=== PATIENT | male | born 1975 | race Caucasian/White ===

== ENCOUNTER 2017-10-21 08:22 | Inpatient (IN) | payer OTHER ==
[2017-10-05 11:07] VITALS: BMI 31.0
--- NOTE | 2017-10-05 11:28 | PAT Medication Instructions ---
Service Date Oct 05, 2017. Current Home Medication List Naproxen (Aleve), 440-660 MG PO DAILY PRN for Pain Omeprazole (Prilosec), 20 MG PO QDD Probiotic Product (Probiotic), 1 CAP PO QDD Medication Instructions For Your Scheduled Surgery - Check with surgeon for instructions: Naproxen (Aleve), 440-660 MG PO DAILY PRN for Pain - Take the following medications as scheduled the night before surgery: Omeprazole (Prilosec), 20 MG PO QDD Probiotic Product (Probiotic), 1 CAP PO QDD If you have any questions please call us at [phone] or [phone] or [phone]
--- NOTE | 2017-10-05 12:12 | DIAGNOSTIC IMAGING REPORT ---
CHEST 2 VIEWS ROUTINE HISTORY: Preop. COMPARISON: Chest CT 04/26/2008. FINDINGS: The lungs are clear. The heart is normal in size. No pleural effusions. No pneumothorax. IMPRESSION: No acute process. Electronically signed by: Mariano Nelson M.D. 10/05/2017 12:10 PM Dictated Date/Time: 10/05/2017 12:09 PM
[2017-10-05 13:02] LABS: BASO % 1.3 %; BASO ABS # 0.07 K/uL (0-0.2); EOS % 3.2 %; EOS ABS # 0.17 K/uL (0-0.5); HEMATOCRIT 43.5 % (42-52); HEMOGLOBIN 15.1 g/dL (14.0-18.0); IG# 0.02 K/uL (0.00-0.02); LYMPH ABS # 1.49 K/uL (1.2-3.4); MEAN CELL VOLUME 92.8 fL (80-100); MEAN CORPUSCULAR HEMOGLOBIN 32.2 pg (25-34); MEAN CORPUSCULAR HGB CONC 34.7 g/dl (32-36); MEAN PLATELET VOLUME 11.3 fL (7.4-10.4); MONO % 7.9 %; MONO ABS # 0.42 K/uL (0.11-0.59); NEUT % 59.2 %; NEUT ABS # 3.15 K/uL (1.4-6.5); PLATELET COUNT 199 K/uL (130-400); RED CELL DISTRIBUTION WIDTH CV 12.6 % (11.5-14.5); RED CELL DISTRIBUTION WIDTH SD 42.6 fL (36.4-46.3); WHITE BLOOD COUNT 5.32 K/uL (4.8-10.8)
[2017-10-05 13:33] LABS: CALCIUM 9.2 mg/dl (8.5-10.1); CREATININE 0.73 mg/dl (0.60-1.40); POTASSIUM 4.2 mmol/L (3.5-5.1)
[~2017-10-21] VITALS: Ht 175.3 cm; Wt 95.2 kg
[2017-10-21] VITALS (7 sets, daily range): BP systolic 99–132; BP diastolic 62–82; PULSE 68–89; TEMP 36.5–37.3; O2SAT 92–100; Ht 175.3 cm; Wt 95.2 kg
[~2017-10-21 08:22] MED LIST: ATROPINE SULFATE 0.1 MG/ML 5ML SYR IV PRN; CEFAZOLIN 2000MG IV PUSH 15 ML IV SCH; EpHEDrine SULFATE INJ 50 MG/ML AMP IV PRN; FENTANYL CITRATE INJ 50 MCG/1 ML 2 ML VIAL IV PRN; HYDROmorphone INJ 1 MG/ML SYR IV PRN; LACTATED RINGER'S 1000ML 1,000 ML IV SCH; MISCCAP80 PO; NAPR1TAB9 PO; ONDANSETRON INJ 2 MG/ML 2 ML VIAL IV PRN; PHENYLEPHRINE 100MCG/ML 5ML SYR IV PRN; PRLSR20 PO; PROMETHAZINE HCL INJ 12.5 MG in SODIUM CHLORIDE 0.9% 50ML 50 ML IV PRN
[2017-10-21] MEDS ORDERED: FENTANYL CITRATE INJ 50 MCG/1 ML 2 ML VIAL ONE ×5 (08:49→12:12)
[2017-10-21] MEDS ORDERED: MIDAZOLAM HCL 1 MG/ML 2ML VIAL ONE (08:49)
--- NOTE | 2017-10-21 09:02 | History & Physical Bridge Note ---
H&P Re-Evaluation Bridge Note: I have examined the patient, reviewed the History & Physical and in the interval since the performance of the History & Physical I have noted the following changes of clinical significance: No changes noted
--- NOTE | 2017-10-21 09:03 | History and Physical ---
History & Physical Date Oct 21, 2017. Chief Complaint Back and leg pain History of Present Illness The patient is a 42 year old male with complaints of back and leg pain Additional History Hepatic Disease: No Endocrine Disorder: No Kidney Disease: No Hypertension: No Heart Disease: No Bleeding Tendencies: No Infectious Diseases: No Allergies Coded Allergies: No Known Allergies (Verified , 10/21/17) Home Medications Scheduled Omeprazole (Prilosec), 20 MG PO QDD Probiotic Product (Probiotic), 1 CAP PO QDD Scheduled PRN Naproxen (Aleve), 440-660 MG PO DAILY PRN for Pain Physical Examination Skin: warm/dry, no rash Eyes: normal inspection, EOMI, sclerae normal ENT: normal ENT inspection, pharynx normal Head: normocephalic, atraumatic Neck: supple, no adenopathy, trachea midline Respiratory/Chest: lungs clear, normal breath sounds, no respiratory distress Cardiovascular: regular rate, rhythm, no edema, no murmur Abdomen / GI: normal bowel sounds, non tender Back: normal inspection Extremities: normal inspection, normal range of motion Neurologic/Psych: no motor/sensory deficits, alert, normal reflexes, oriented x 3 Diagnosis Lumbar spinal stenosis Plan of Treatment L4 to S1 decompression and fusion
[2017-10-21] MEDS ORDERED: BACITRACIN 50000 UNIT VIAL ONE (09:44)
[2017-10-21] MEDS ORDERED: BUPIVACAINE/EPINEPHRINE 0.5% MPF 1:200,000 30 ML VIAL ONE (09:44)
[2017-10-21] MEDS ORDERED: HYDROmorphone INJ 2 MG/ML SYR/VIAL ONE ×2 (09:53→11:42)
[2017-10-21] MEDS ORDERED: GLYCOPYRROLATE INJ 0.2 MG/ML VIAL ONE (11:43)
[2017-10-21] MEDS ORDERED: FLOSEAL HEMOSTATIC MATRIX 10ML TOP ONE (11:43)
[2017-10-21] MEDS ORDERED: METOPROLOL TARTRATE 1 MG/ML VIAL ONE (11:43)
[2017-10-21] MEDS ORDERED: KETOROLAC TROMETHAMINE 30 MG/ML VIAL ONE (11:43)
[2017-10-21] MEDS ORDERED: LIDOCAINE HCL 2% 2 ML VIAL (20MG/ML) ONE (11:43)
[2017-10-21] MEDS ORDERED: NEOSTIGMINE METHYLSULFATE 1 MG/ML 10ML VIAL ONE (11:43)
[2017-10-21] MEDS ORDERED: PROPOFOL IV EMULSION 10 MG/ML 20 ML VIAL IV ONE (11:43)
[2017-10-21] MEDS ORDERED: ONDANSETRON INJ 2 MG/ML 2 ML VIAL ONE (11:43)
[2017-10-21] MEDS ORDERED: ESMOLOL HCL 10 MG/ML 10 ML VIAL ONE (11:43)
[2017-10-21] MEDS ORDERED: ROCURONIUM BROMIDE 10 MG/ML 5 ML VIAL IV ONE (11:43)
[2017-10-21] MEDS ORDERED: DEXAMETHASONE SOD INJ 4 MG/ML VIAL ONE (11:43)
--- NOTE | 2017-10-21 11:47 | [facility] Operative Report ---
Operative Report Operative Date Oct 21, 2017. Pre-Operative Diagnosis Lumbar Spinal Stenosis Post-Operative Diagnosis same as pre-operative diagnosis Procedure(s) Performed #1 lumbar decompression medial facetectomies foraminotomies L4 5 L5-S1. #2 posterior spinal fusion L4 5 L5-S1. #3 placed posterior segmental instrumentation L4 5 L5-S1. #4 interbody fusion L4 5 L5-S1. #5 placement peek cage 15 x 26 at L4 5 and 12 x 26 L5-S1. #6 placement of locally harvested morcellized autograft in the posterior lateral gutters. #7 placement infuse collagen sponge, mass graft and locally harvested morcellized autograft in the posterior lateral gutters as well as posteriorly up in the interbody spaces. Surgeon Dr. Ed Mclean Supervisor Furnace Process Surgeon(s) Carissa Guzman PA-C Estimated Blood Loss 450mL Findings Severe spinal stenosis with herniated nucleus pulposus Specimens None, Per Surgeon Anesthesia Type General Description of Procedure Patient was met with preoperatively case discussed all questions addressed. After informed consent obtained patient was taken to the operative suite underwent intubation placed in the prone position on the Donnie table on top of the Trent frame. All bony prominences were well-padded the eyes inspected to ensure no external pressure placed upon them. This point the lumbar spine was prepped and draped in the normal sterile fashion. Sharp dissection with the assistance of Bovie cautery was performed down to and exposing the lamina transverse processes of L4-L5 and the sacroiliac bilaterally. From a caudal to cephalad fashion a complete laminectomy of L5 and L4 was performed addressing severe lateral recess and foraminal stenosis. At this complete pedicle screws were placed in L4 L5 S1 levels bilaterally with the assistance of fluoroscopy and the properly sized erma placed. Through a trans-foraminal approach on the right oblique discectomy of L5-S1 was performed endplates curetted to subcortical bleeding bone and a 12 x 26 mm peek cage filled with osteal bone graft Position. I Then Proceeded to L4 5. Again through a Transforaminal Approach on the Right a Complete Discectomy Was Performed and Plate Could to Subcortical Bleeding Bone and a 10 x 26 Mm Peek Cage Filled with Osteal Bone Graft Tapped in Position. Rods Were Then Compressed Locked into Final Position Bilaterally. The Transverse Processes of L4 and L5 This Acrylic Bur to Subcortical Bone. Infuse Collagen Sponge Mass Graft Locally Harvested Morcellized Autograft Was Placed Posterior Gutters. The Femur REJI Drain Inserted. The Incision Was Then Closed with 1 Vicryl in the Fascia 2-0 Vicryl Subcutaneous and 4-0 Monocryl for Final Skin Closure Steri-Strips Dressings Placed. Patient Was Taken PACU Stable Condition. Please Note Rolan Guzman Was Present at the Entire Procedure Involved in Patient Positioning Complex Portions of the Surgery and Final Skin Closure. I attest to the content of the Intraoperative Record and any orders documented therein. Any exceptions are noted below.
[2017-10-21] MEDS ORDERED: SODIUM CHLORIDE 0.9% 1000ML 1,000 ML IV SCH (11:48)
--- NOTE | 2017-10-21 11:52 | DIAGNOSTIC IMAGING REPORT ---
Intraoperative lumbar spine 2 views CLINICAL HISTORY: L4-S1 DECOMPRESSION/FUSION COMPARISON STUDY: No previous studies for comparison. FINDINGS: 2 intraoperative fluoroscopic spot views are provided for interpretation. 26 seconds of fluoroscopic time was utilized. There are postsurgical changes of discectomies and interbody fusions at the L4-5 and L5-S1 levels. There is posterior pedicle screw fixation at the L4, L5, and S1 levels. There is a vertebral body cage at the L3 level. There is a partially visualized lateral metallic plate and screws. IMPRESSION: Intraoperative findings of an L4-S1 spinal decompression and fusion. Electronically signed by: Ketan Huerta M.D. 10/21/2017 11:51 AM Dictated Date/Time: 10/21/2017 11:48 AM
[2017-10-21] MEDS ORDERED: ALUMINUM/MAGNESIUM SUSP 30 ML UDC PO PRN (12:00)
[2017-10-21] MEDS ORDERED: LORAZEPAM INJ 0.5 MG in SYRINGE 0.75 ML IV PRN (12:00)
[2017-10-21] MEDS ORDERED: PROMETHAZINE HCL INJ 12.5 MG in SODIUM CHLORIDE 0.9% 50ML 50 ML IV PRN (12:00)
[2017-10-21] MEDS ORDERED: MAGNESIUM HYDROXIDE SUSP 30 ML UDC PO PRN (12:00)
[2017-10-21] MEDS ORDERED: FAMOTIDINE 20 MG TAB PO PRN (12:00)
[2017-10-21] MEDS ORDERED: BISACODYL 10 MG SUPP PR PRN (12:00)
[2017-10-21] MEDS ORDERED: DO NOT ADMINISTER PNEUMOCOCCAL VACCINE PRN (12:00)
[2017-10-21] MEDS ORDERED: ACETAMINOPHEN IV 100 ML IV PRN (12:00)
[2017-10-21] MEDS ORDERED: hydrOXYzine HCL 25 MG TAB PO PRN (12:00)
[2017-10-21] MEDS ORDERED: METOCLOPRAMIDE HCL INJ 5 MG/ML 2 ML VIAL IV PRN (12:00)
[2017-10-21] MEDS ORDERED: ACETAMINOPHEN 500 MG TAB PO PRN (12:00)
[2017-10-21] MEDS ORDERED: DO NOT ADMINISTER FLU VACCINE PRN (12:00)
[2017-10-21] MEDS ORDERED: SOD PHOSPHATE/SOD BIPHOSPHATE ENEMA 132 ML BTL PR PRN (12:00)
[2017-10-21] MEDS ORDERED: NALOXONE HCL 0.4 MG/1 ML VIAL/CARP IV PRN ×2 (12:00)
[2017-10-21] MEDS ORDERED: ONDANSETRON INJ 2 MG/ML 2 ML VIAL IV PRN (12:00)
[2017-10-21] MEDS ORDERED: LORAZEPAM 0.5 MG TAB PO PRN (12:00)
[2017-10-21] MEDS ORDERED: HYDROmorphone INJ 1 MG/ML SYR ONE (12:13)
--- NOTE | 2017-10-21 12:51 | Anesthesiology Progress Note ---
Anesthesia Post Op Note Date & Time Oct 21, 2017 at 12:50 Vital Signs Pain Intensity: 6 Vital Signs Past 12 Hours Date Time Temp Pulse Resp B/P (MAP) Pulse Ox O2 Delivery O2 Flow Rate FiO2 10/21/17 12:49 36.3 10/21/17 12:47 71 16 10/21/17 12:47 73 16 98 10/21/17 12:46 117/84 10/21/17 12:42 74 16 94 10/21/17 12:42 73 16 10/21/17 12:41 121/78 10/21/17 12:37 63 16 10/21/17 12:37 63 16 96 10/21/17 12:36 63 16 97 10/21/17 12:36 63 16 10/21/17 12:35 123/84 10/21/17 12:31 67 12 10/21/17 12:31 68 12 134/85 97 10/21/17 12:29 139/83 10/21/17 12:26 70 12 10/21/17 12:26 68 12 100 10/21/17 12:21 71 14 10/21/17 12:21 73 14 98 10/21/17 12:20 125/93 10/21/17 12:19 69 15 10/21/17 12:19 67 15 99 10/21/17 12:16 136/82 10/21/17 12:14 70 15 10/21/17 12:14 71 15 100 10/21/17 12:10 136/84 10/21/17 12:09 67 16 10/21/17 12:09 66 16 99 10/21/17 12:05 123/79 10/21/17 12:04 82 15 10/21/17 12:04 82 15 128/87 94 10/21/17 12:04 36.8 16 128/87 96 Oxymask 10 10/21/17 08:44 36.5 89 20 117/82 95 Room Air Notes Mental Status: alert / awake / arousable, participated in evaluation Pt Amnestic to Procedure: Yes Nausea / Vomiting: adequately controlled Pain: adequately controlled Airway Patency, RR, SpO2: stable & adequate BP & HR: stable & adequate Hydration State: stable & adequate Anesthetic Complications: no major complications apparent Awake, doing well, VSS, pain controlled.
[2017-10-21] MEDS: HYDROmorphone HCL 0.5MG/ML 50 ML CASSETTE IV PRN ×3 (13:06→22:49)
[2017-10-21] MEDS: SODIUM CHLORIDE 0.9% 1000ML 1,000 ML IV SCH ×2 (13:10→20:30)
[2017-10-21] MEDS ORDERED: VOLUVEN IN NSS ONE (14:23)
[2017-10-21] MEDS: CEFAZOLIN IV 2,000 MG in SYRINGE 0 ML IV SCH (18:11)
[2017-10-21] MEDS: PANTOprazole SOD 40 MG TAB PO SCH (18:11)
[2017-10-21] MEDS: DOCUSATE SODIUM/SENNA 50/8.6MG TAB PO SCH (21:18)
[2017-10-22] MEDS: SODIUM CHLORIDE 0.9% 1000ML 1,000 ML IV SCH (01:44)
[2017-10-22] MEDS: CEFAZOLIN IV 2,000 MG in SYRINGE 0 ML IV SCH (01:44)
[2017-10-22 03:45] VITALS: BP 115/87; PULSE 98; TEMP 37.2; O2SAT 93
[2017-10-22] MEDS ORDERED: DC PCA SCH (06:00)
[2017-10-22] MEDS ORDERED: NURSING VERBAL MED ORDER ONE (06:15)
[2017-10-22 06:42] LABS: BASO % 0.2 %; BASO ABS # 0.02 K/uL (0-0.2); EOS % 0.3 %; EOS ABS # 0.03 K/uL (0-0.5); HEMATOCRIT 33.5 % (42-52); HEMOGLOBIN 11.1 g/dL (14.0-18.0); IG# 0.02 K/uL (0.00-0.02); LYMPH % 8.6 %; LYMPH ABS # 1.01 K/uL (1.2-3.4); MEAN CELL VOLUME 92.5 fL (80-100); MEAN CORPUSCULAR HEMOGLOBIN 30.7 pg (25-34); MEAN CORPUSCULAR HGB CONC 33.1 g/dl (32-36); MONO % 10.9 %; MONO ABS # 1.28 K/uL (0.11-0.59); NEUT % 79.8 %; NEUT ABS # 9.39 K/uL (1.4-6.5); PLATELET COUNT 142 K/uL (130-400); RED CELL DISTRIBUTION WIDTH CV 12.6 % (11.5-14.5); WHITE BLOOD COUNT 11.75 K/uL (4.8-10.8)
[2017-10-22 07:18] LABS: CALCIUM 7.5 mg/dl (8.5-10.1); CREATININE 0.87 mg/dl (0.60-1.40); POTASSIUM 3.6 mmol/L (3.5-5.1)
[2017-10-22 07:27] VITALS: BP 98/57; TEMP 37; O2SAT 85
[2017-10-22 07:34] VITALS: O2SAT 93
[2017-10-22] MEDS: HYDROmorphone INJ 0.5 MG/0.5 ML SYR IV PRN ×2 (07:44→12:19)
--- NOTE | 2017-10-22 08:15 | Orthopedic Progress Note ---
Orthopedic Progress Note Date of Service Oct 22, 2017. Subjective Post OP Day: 1 Reports: feeling well Additional Notes: Patient's postoperative day 1 lumbar decompression with instrument fusion L4 through S1. Only complaint is headache. This is not positional. Back pain is controlled. No radicular leg pain. REJI drain output left shift was 80 mL. H&H is 11.1 and 33.5 respectively. Objective calves soft nontender, N/V intact, dressing C/D/I, incision C/D/I, A&O x3 Patient lying on her side. Larks reservist intact. Lumbar dressing clean dry and intact. Date Time Temp Pulse Resp B/P (MAP) Pulse Ox O2 Delivery O2 Flow Rate FiO2 10/22/17 07:34 18 93 Nasal Cannula 2.0 10/22/17 07:27 37.0 18 98/57 (71) 85 Room Air 10/22/17 03:45 37.2 98 16 115/87 (96) 93 Room Air 10/21/17 23:19 Room Air 10/21/17 22:50 36.7 88 16 99/68 (78) 92 Room Air 10/21/17 20:19 37.3 83 17 117/75 (89) 98 Nasal Cannula 3.0 10/21/17 15:25 Nasal Cannula 4.0 10/21/17 15:10 36.5 69 17 110/71 (84) 99 Nasal Cannula 4.0 10/21/17 14:10 77 16 107/62 (77) 100 Nasal Cannula 4.0 10/21/17 13:40 36.5 71 16 115/69 (84) 99 Nasal Cannula 4.0 10/21/17 13:10 36.5 68 16 132/78 (96) 100 Nasal Cannula 4.0 10/21/17 13:10 100 Nasal Cannula 4.0 10/21/17 13:10 Nasal Cannula 4.0 10/21/17 12:55 112/78 10/21/17 12:53 64 15 98 10/21/17 12:53 64 15 10/21/17 12:52 115/93 10/21/17 12:49 36.3 10/21/17 12:48 69 17 99 10/21/17 12:48 70 17 10/21/17 12:47 71 16 10/21/17 12:47 73 16 98 10/21/17 12:46 117/84 10/21/17 12:42 74 16 94 10/21/17 12:42 73 16 10/21/17 12:41 121/78 10/21/17 12:37 63 16 10/21/17 12:37 63 16 96 10/21/17 12:36 63 16 97 10/21/17 12:36 63 16 10/21/17 12:35 123/84 10/21/17 12:31 67 12 10/21/17 12:31 68 12 134/85 97 10/21/17 12:29 139/83 10/21/17 12:26 70 12 10/21/17 12:26 68 12 100 10/21/17 12:21 71 14 10/21/17 12:21 73 14 98 10/21/17 12:20 125/93 10/21/17 12:19 69 15 10/21/17 12:19 67 15 99 10/21/17 12:16 136/82 10/21/17 12:14 70 15 10/21/17 12:14 71 15 100 10/21/17 12:10 136/84 10/21/17 12:09 67 16 10/21/17 12:09 66 16 99 10/21/17 12:05 123/79 10/21/17 12:04 82 15 10/21/17 12:04 82 15 128/87 94 10/21/17 12:04 36.8 16 128/87 96 Oxymask 10 10/21/17 08:44 36.5 89 20 117/82 95 Room Air Laboratory Results 24 Hours: Test 10/22/17 06:23 White Blood Count 11.75 K/uL Red Blood Count 3.62 M/uL Hemoglobin 11.1 g/dL Hematocrit 33.5 % Mean Corpuscular Volume 92.5 fL Mean Corpuscular Hemoglobin 30.7 pg Mean Corpuscular Hemoglobin Concent 33.1 g/dl Platelet Count 142 K/uL Mean Platelet Volume 11.0 fL Neutrophils (%) (Auto) 79.8 % Lymphocytes (%) (Auto) 8.6 % Monocytes (%) (Auto) 10.9 % Eosinophils (%) (Auto) 0.3 % Basophils (%) (Auto) 0.2 % Neutrophils # (Auto) 9.39 K/uL Lymphocytes # (Auto) 1.01 K/uL Monocytes # (Auto) 1.28 K/uL Eosinophils # (Auto) 0.03 K/uL Basophils # (Auto) 0.02 K/uL Assessment & Plan Assessment: Postoperative debridement lumbar decompression for spinal fusion L4 through S1 Plan: He'll have physical therapy today. Maintain REJI drain. DVT prophylaxis isn't from teds and SCDs. Anticipate discharge home with the next 24-48 hours.
[2017-10-22] MEDS: OXYCODONE HCL IR 5 MG TAB (IMMEDIATE RELEASE) PO PRN (10:09)
[2017-10-22 10:41] VITALS: BP 124/73; PULSE 84; TEMP 37; O2SAT 96
[2017-10-22] MEDS ORDERED: KETOROLAC TROMETHAMINE 30 MG/ML VIAL IV PRN (11:15)
[2017-10-22 15:08] VITALS: BP 111/69; PULSE 98; TEMP 37.5; O2SAT 92
[2017-10-22] MEDS: PANTOprazole SOD 40 MG TAB PO SCH (18:09)
[2017-10-22] MEDS: KETOROLAC TROMETHAMINE 30 MG/ML VIAL IV PRN (18:12)
[2017-10-22] MEDS: DOCUSATE SODIUM/SENNA 50/8.6MG TAB PO SCH (21:10)
[2017-10-22 23:00] VITALS: BP 126/68; PULSE 79; TEMP 37; O2SAT 92
[2017-10-23] MEDS: KETOROLAC TROMETHAMINE 30 MG/ML VIAL IV PRN ×3 (04:47→18:37)
[2017-10-23] MEDS: POLYETHYLENE (MIRALAX) 17 GM PACK PO SCH ×2 (05:37→12:00)
[2017-10-23] MEDS ORDERED: RXC5 PO (07:34)
--- NOTE | 2017-10-23 07:35 | Discharge Instructions ---
Discharge Instructions Date of Service Oct 23, 2017. Admission Reason for Admission: Spinal Stenosis Discharge Discharge Diagnosis / Problem: lumbar stenosis Discharge Goals Goal(s): Improve function Activity Recommendations Activity Limitations: per Instructions/Follow-up section . Instructions / Follow-Up Instructions / Follow-Up ACTIVITY RECOMMENDATIONS: SELF CARE INSTRUCTIONS AFTER THORACIC/LUMBAR FUSIONS 1. You may walk to your tolerance. It is good exercise for your legs and back. Expect some back and intermittent leg aches and pains. 2. You may perform "counter-top" level activities (make a sandwich, yung with a project, etc.). 3. No bending or lifting of more than 10 pounds or back twisting of any nature (roll like a log when turning in bed). 4. You may ride in a car for 20-30 minutes at a time. No driving until after your first visit with your doctor. 5. Frequent changes of position and restricting sitting to 30 minutes at a time will help limit the amount of back spasms and stiffness you may experience. 6. You may discontinue the use of ambulatory aids (cane, crutches, etc.) once your strength and confidence allow. 7. You may bilingual teacher the shower and let water strike your incision when you arrive home at least once daily. Do not take a tub bath, sit in a hot tub or go into a swimming pool until after your first recheck in the office. SPECIAL CARE INSTRUCTIONS: VERY IMPORTANT TO READ AND REVIEW A. Your surgical incision has been closed with a cosmetic suture under the skin that will dissolve in about 6 weeks. In 14 days, you can use a pair of clean scissors and cut the suture that is left outside of the skin at the ends of your incision. 1. The small skin tapes can be removed 7 days after surgery if they have not fallen off by that point. 2. You may keep the wound open to air as much as possible to promote healing after post-op day number 5 unless told otherwise by your doctor. 3. If you think the wound looks like it is becoming infected (redness or worsening drainage) and/or you are experiencing fever, chill or worsening back pain and muscle spasms, contact the office so that we may evaluate you as soon as possible. B. Complications are uncommon, but please contact us if you have any signs or symptoms of: 1. wound infection (fever higher than 102.5 degrees F, redness, separation of wound, drainage, or increasing pain from the incision) 2. blood clots in legs (pain, swelling, redness and warmth in legs) 3. urinary tract infection (fever higher than 102.5 degrees F, burning upon urination or increased frequency of urination) 4. nerve problems (inability to walk on your toes or heels, numbness, loss of bowel or bladder control) 5. any other symptoms that concern you C. Please call the office at if you have any concerns or questions about your operation or recovery. D. No smoking! Smoking drastically decreases the chance of a solid fusion. E. Do not take any anti-inflammatory medications (Indocin, Advil, Motrin, Aspirin, Naprosyn, etc.) as these may inhibit the chance of a solid fusion. Tylenol is okay to take for pain. MANAGING PAIN AFTER SPINAL SURGERY 1. Narcotic medication is intended for short-term use and will be provided for surgical pain. Surgical pain usually lasts for a period of 4-6 weeks. Narcotic medication includes Percocet, Vicodin, Darvocet, Tylenol #3 or Lortab. 2. Longer-term pain is more appropriately treated with non-narcotic medication such as Tylenol ES. 3. Muscle spasm is not appropriately treated with narcotics. Muscle relaxers such as Soma, Flexeril or Skelaxin can be used along with Tylenol ES. 4. Remember that we all live with some "aches and pains". This is not unusual or uncommon after an injury or as we get older. a. Back pain is expected and may include muscle spasms for 4 to 6 weeks after surgery. The pain should gradually improve. If the pain worsens for no apparent reason, please contact the office. b. Intermittent leg pain may also be experienced and should not be concerned about unless it worsens for no apparent reason. If so, please contact the office. 5. We will provide appropriate medication within the normal guidelines of their prescribed use. We will also be very cautious and aware of potential abuse and extended duration of patients' medication needs. a. Pain medications are for your comfort and to assist with sleep and rest so that the tissue can heal. They are not provided in order to return to normal activity and should not be used through the day. To do so or worsening pain at night can result from ongoing tissue damage and development of tolerance to the prescribed medicine. 6. Please allow 2-3 days to process refills. Prescriptions will not be mailed but must be picked up at the office. FOLLOW UP VISIT: Keep your scheduled follow-up appointment. Any questions, please call the office at . Current Hospital Diet Patient's current hospital diet: Regular Diet Discharge Diet Recommended Diet: Regular Diet Procedures Procedures Performed: #1 lumbar decompression medial facetectomies foraminotomies L4 5 L5-S1. #2 posterior spinal fusion L4 5 L5-S1. #3 placed posterior segmental instrumentation L4 5 L5-S1. #4 interbody fusion L4 5 L5-S1. #5 placement peek cage 15 x 26 at L4 5 and 12 x 26 L5-S1. #6 placement of locally harvested morcellized autograft in the posterior lateral gutters. #7 placement infuse collagen sponge, mass graft and locally harvested morcellized autograft in the posterior lateral gutters as well as posteriorly up in the interbody spaces. Pending Studies Studies pending at discharge: no Medical Emergencies . Who to Call and When: Medical Emergencies: If at any time you feel your situation is an emergency, please call 911 immediately. . Non-Emergent Contact Non-Emergency issues call your: Primary Care Provider . "Provider Documentation" section prepared by Ed Mclean. . VTE Core Measure Inpt VTE Proph given/why not?: Nolan Calvo, SCD's
[2017-10-23 07:55] VITALS: BP 128/64; PULSE 92; TEMP 37; O2SAT 94
[2017-10-23 08:18] VITALS: O2SAT 94
[2017-10-23 09:35] VITALS: BP 141/81
[2017-10-23 09:42] VITALS: BP 128/64; PULSE 92; TEMP 37; O2SAT 94
[2017-10-23] MEDS: OXYCODONE HCL IR 5 MG TAB (IMMEDIATE RELEASE) PO PRN ×2 (10:10→17:47)
--- NOTE | 2017-10-23 11:46 | Discharge Summary ---
Orthopedic Discharge Summary Admission Date/Reason Oct 21, 2017 at 09:00 Spinal Stenosis. Discharge Date/Disposition Oct 23, 2017 Home Diagnosis Principal Diagnosis: Lumbar spinal stenosis Admission Physical Exam As per Admitting History & Physical. Hospital Course Patient underwent lumbar decompression fusion tolerated this well was taken to the orthopedic floor postop leak. Postoperative day #1 he is up in amatory progressed nicely through postoperative day #2. Subsequent postoperative day # 3 she was discharged home. Discharge orders and instructions found in the chart for further review. Discharge Instructions Please refer to the electronic Patient Visit Report (Discharge Instructions) for additional information.
[2017-10-23 11:53] VITALS: BP 118/78; PULSE 91; TEMP 36.7; O2SAT 96
[2017-10-23 15:40] VITALS: BP 129/74; PULSE 98; TEMP 36.8; O2SAT 96
[2017-10-23] MEDS: PANTOprazole SOD 40 MG TAB PO SCH (17:44)
== END 2017-10-23 19:00 | disposition home or self-care (01) | DRG 455 ==
LOC: C.ACU 08:22 → C.3E 09:00 → ENRESERV 12:30
PROVIDERS: ADMIT Orthopaedic Surgery Orthopaedic Surgery of the Spine; ATTEND Orthopaedic Surgery Orthopaedic Surgery of the Spine
PROC: 0SG00AJ Fusion of Lumbar Vertebral Joint with Interbody Fusion Device, Posterior Approach, Anterior Column, Open Approach (ICD-10-PCS; principal; 2017-10-21 10:15)
PROC: 0ST20ZZ Resection of Lumbar Vertebral Disc, Open Approach (ICD-10-PCS; principal; 2017-10-21 10:15)
PROC: 0SG0071 Fusion of Lumbar Vertebral Joint with Autologous Tissue Substitute, Posterior Approach, Posterior Column, Open Approach (ICD-10-PCS; principal; 2017-10-21 10:15)
PROC: 0SG3071 Fusion of Lumbosacral Joint with Autologous Tissue Substitute, Posterior Approach, Posterior Column, Open Approach (ICD-10-PCS; principal; 2017-10-21 10:15)
PROC: 0ST40ZZ Resection of Lumbosacral Disc, Open Approach (ICD-10-PCS; principal; 2017-10-21 10:15)
PROC: 0SG30AJ Fusion of Lumbosacral Joint with Interbody Fusion Device, Posterior Approach, Anterior Column, Open Approach (ICD-10-PCS; principal; 2017-10-21 10:15)
DX: M48.061 Spinal stenosis, lumbar region without neurogenic claudication (principal); M54.16 Radiculopathy, lumbar region; K21.9 Gastro-esophageal reflux disease without esophagitis; E66.9 Obesity, unspecified; Z68.31 Body mass index [BMI] 31.0-31.9, adult; Z87.891 Personal history of nicotine dependence